=== PATIENT | male | born 1990 | race Two or more races ===

== ENCOUNTER 2019-05-19 00:27 | Emergency (ER) | payer OTHER ==
[~2019-05-19] VITALS: Ht 188 cm; Wt 82.0 kg
[2019-05-19 00:31] VITALS: BP 130/73
--- NOTE | 2019-05-19 01:23 | NUR ---
CARE ASSUMED OF PT. PT SITTING ON [place] WITH NO S/S OF ACUTE DISTRESS. STATES THAT ON TUESDAY HE "HAD A BIG COUGH" AND THEN NOTICED A LUMP ON HIS R RIBS, MID AXILLARY. PT DENIES COUGH OR SOB AT THIS TIME. LUNGS EQUAL AND CLEAR. SMALL LUMP PALPATED ON R LOWER RIBS. DENIES PAIN. AWAITING ERP EVAL. CALL LIGHT IN REACH.
== END 2019-05-19 02:06 | disposition home or self-care (01) ==
LOC: ED 01:00
DX: D17.79 Benign lipomatous neoplasm of other sites (principal)
CPT/HCPCS: 99281